=== PATIENT | male | born 1975 | race Hispanic/Latino ===

== ENCOUNTER 2021-08-27 14:20 | Emergency (ER) | payer MEDICARE ==
[~2021-08-27] VITALS: Ht 175.3 cm; Wt 97.5 kg
[2021-08-27] MEDS ORDERED: BELLADONNA ALK/PHENOBARBITAL 5 ML UDC PO ONE (15:00)
[2021-08-27] MEDS ORDERED: CLONIDINE HCL 0.1 MG TAB PO ONE (15:30)
[2021-08-27] MEDS ORDERED: LIDOCAINE VISC 2% SOLN 15 ML UDC PO ONE (15:30)
[2021-08-27] MEDS ORDERED: LORAZEPAM INJ 2 MG/ML VIAL IM ONE (15:30)
[2021-08-27] MEDS ORDERED: MAGNESIUM/ALUMINUM/SIMETHICONE 30 ML UDC PO ONE (15:30)
== END 2021-08-27 16:56 | disposition home or self-care (01) ==
LOC: ER 14:30
DX: F10.10 Alcohol abuse, uncomplicated (principal); K29.70 Gastritis, unspecified, without bleeding; I10 Essential (primary) hypertension; E78.5 Hyperlipidemia, unspecified; G47.30 Sleep apnea, unspecified; F41.9 Anxiety disorder, unspecified
CPT/HCPCS: 93005; 99284; J2060